=== PATIENT | male | born 1975 ===

== ENCOUNTER 2019-02-02 11:12 | Emergency (ER) | payer OTHER ==
[~2019-02-02] VITALS: Ht 175.3 cm; Wt 80.0 kg
[2019-02-02 11:22] VITALS: BP 143/94
[2019-02-02] MEDS ORDERED: ibuprofen tablet 400 MG TABLET PO ONE (11:40)
== END 2019-02-02 12:48 | disposition home or self-care (01) ==
LOC: ER 11:13
DX: S93.491A Sprain of other ligament of right ankle, initial encounter (principal); X58.XXXA Exposure to other specified factors, initial encounter; Y93.89 Activity, other specified; Y92.89 Other specified places as the place of occurrence of the external cause; Y99.8 Other external cause status
CPT/HCPCS: 29515; 73610; 99284